=== PATIENT | female | born 1980 | race African-American/Black ===

== ENCOUNTER 2019-07-21 08:57 | Emergency (ER) | payer SELFPAY ==
--- NOTE | 2019-07-21 09:22 | ER ---
Nurse's Notes [facility] Name: Shadi Shannon Age: 39 yrs Sex: Female : 1980 Arrival Date: 07/21/2019 Time: 09:00 Bed 19 Private MD: Diagnosis: Dental caries;Dental caries, unspecified;Dental root caries Presentation: 07/20 09:11 Chief complaint: Patient states: RIGHT LOWER TOOTH PAIN SINCE Y/D AM. Coronavirus bp screen: Patient denies fever greater than 100.4F, cough, shortness of breath, or difficulty breathing. Ebola Screen: No symptoms or risks identified at this time. Initial Sepsis Screen: Does the patient meet any 2 criteria? No. Patient's initial sepsis screen is negative. Does the patient have a suspected source of infection? No. Patient's initial sepsis screen is negative. Risk Assessment: Do you want to hurt yourself or someone else? Patient reports no desire to harm self or others. 09:11 Method Of Arrival: Ambulatory bp 09:11 Acuity: AUDELIA 5 bp 09:13 Onset of symptoms was July 20, 2019 at 07:00. bp Triage Assessment: 09:11 General: Appears in no apparent distress. comfortable, Behavior is calm, cooperative, bp appropriate for age. Pain: Complains of pain in mouth. EENT: Reports pain in right jaw. Neuro: No deficits noted. Cardiovascular: No deficits noted. Respiratory: No deficits noted. GI: No signs and/or symptoms were reported involving the gastrointestinal system. : No signs and/or symptoms were reported regarding the genitourinary system. Derm: No deficits noted. Musculoskeletal: No deficits noted. Historical: - Allergies: 09:09 No Known Allergies; hb - Home Meds: 09:09 None [Active]; hb - PMHx: 09:09 Anemia; hb - PSHx: 09:09 None; hb - Immunization history:: Adult Immunizations up to date. - Social history:: Smoking status: Patient denies any tobacco usage or history of. - Family history:: not pertinent. Screenin:08 Abuse screen: Denies threats or abuse. Denies injuries from another. Nutritional hb screening: No deficits noted. Tuberculosis screening: No symptoms or risk factors identified. Fall Risk None identified. Assessment: 09:12 General: SEE TRIAGE NOTE. bp Vital Signs: 09:11 BP 144 / 95; Pulse 80; Resp 16; Temp 97.2; Pulse Ox 100% ; Weight 65.77 kg; Height 5 bp ft. 6 in. (167.64 cm); 09:11 Body Mass Index 23.40 (65.77 kg, 167.64 cm) bp ED Course: 09:00 Patient arrived in ED. mr 09:05 Leland Peña MD is Attending Physician. esther 09:07 Arm band placed on. hb 09:08 Patient has correct armband on for positive identification. Bed in low position. Call hb light in reach. Side rails up X 1. 09:12 Triage completed. bp 09:20 Matthew Baldwin DDS is Referral Physician. esther 09:37 Zamzam Barnard, RN is Primary Nurse. hb 09:38 No provider procedures requiring assistance completed. Patient did not have IV access hb during this emergency room visit. Administered Medications: 03:33 Drug: Motrin 600 mg Route: PO; hb 09:38 Follow up: Response: Medication administered at discharge. hb 09:33 Drug: Augmentin 875 mg Route: PO; hb 09:37 Follow up: Response: No adverse reaction; Medication administered at discharge. hb Outcome: 09:21 Discharge ordered by . esther 09:38 Discharged to home ambulatory. hb 09:38 Condition: stable 09:38 Discharge instructions given to patient, Instructed on discharge instructions, follow up and referral plans. medication usage, Demonstrated understanding of instructions, follow-up care, medications, Prescriptions given X 3. 09:39 Patient left the ED. hb Signatures: Leland Peña MD MD cha Rivera, Mary mr Zamzam Barnard, RN RN Alphonso Omer, ALEXIS RN bp
--- NOTE | 2019-07-21 09:22 | EDPHYS ---
Physician Documentation [facility] Name: Shadi Shannon Age: 39 yrs Sex: Female : 1980 Arrival Date: 07/21/2019 Time: 09:00 Bed 19 Private MD: PEDRO Physician Leland Peña HPI: 07/20 09:17 This 39 yrs old Black Female presents to ER via Ambulatory with complaints of Toothache.esther 09:17 The patient presents with broken tooth/teeth, pain. The problem is located in the right [facility] buccal mucosa. Onset: The symptoms/episode began/occurred 2 day(s) ago. Duration: The symptoms are continuous, and are steadily getting worse. Modifying factors: The symptoms are alleviated by nothing, the symptoms are aggravated by chewing. Associated signs and symptoms: The patient has no apparent associated signs or symptoms. Severity of symptoms: At their worst the symptoms were mild, moderate, in the emergency department the symptoms are unchanged. The patient has not experienced similar symptoms in the past. Historical: - Allergies: 09:09 No Known Allergies; hb - Home Meds: 09: None [Active]; hb - PMHx: 09:09 Anemia; hb - PSHx: 09:09 None; hb - Immunization history:: Adult Immunizations up to date. - Social history:: Smoking status: Patient denies any tobacco usage or history of. - Family history:: not pertinent. ROS: 09:17 Constitutional: Negative for fever, chills, and weight loss, Eyes: Negative for injury, esther pain, redness, and discharge, Neck: Negative for injury, pain, and swelling, Cardiovascular: Negative for chest pain, palpitations, and edema, Respiratory: Negative for shortness of breath, cough, wheezing, and pleuritic chest pain, Abdomen/GI: Negative for abdominal pain, nausea, vomiting, diarrhea, and constipation, Back: Negative for injury and pain, : Negative for injury, bleeding, discharge, and swelling, MS/Extremity: Negative for injury and deformity, Skin: Negative for injury, rash, and discoloration, Neuro: Negative for headache, weakness, numbness, tingling, and seizure, Psych: Negative for depression, anxiety, suicide ideation, homicidal ideation, and hallucinations, Allergy/Immunology: Negative for hives, rash, and allergies, Endocrine: Negative for neck swelling, polydipsia, polyuria, polyphagia, and marked weight changes, Hematologic/Lymphatic: Negative for swollen nodes, abnormal bleeding, and unusual bruising. 09:17 ENT: Positive for dental pain, Gum pain Exam: 09:17 Constitutional: This is a well developed, well nourished patient who is awake, alert, esther and in no acute distress. Head/Face: Normocephalic, atraumatic. Eyes: Pupils equal round and reactive to light, extra-ocular motions intact. Lids and lashes normal. Conjunctiva and sclera are non-icteric and not injected. Cornea within normal limits. Periorbital areas with no swelling, redness, or edema. Neck: Trachea midline, no thyromegaly or masses palpated, and no cervical lymphadenopathy. Supple, full range of motion without nuchal rigidity, or vertebral point tenderness. No Meningismus. Chest/axilla: Normal chest wall appearance and motion. Nontender with no deformity. No lesions are appreciated. Cardiovascular: Regular rate and rhythm with a normal S1 and S2. No gallops, murmurs, or rubs. Normal PMI, no JVD. No pulse deficits. Respiratory: Lungs have equal breath sounds bilaterally, clear to auscultation and percussion. No rales, rhonchi or wheezes noted. No increased work of breathing, no retractions or nasal flaring. Abdomen/GI: Soft, non-tender, with normal bowel sounds. No distension or tympany. No guarding or rebound. No evidence of tenderness throughout. Back: No spinal tenderness. No costovertebral tenderness. Full range of motion. Female : Normal external genitalia. Skin: Warm, dry with normal turgor. Normal color with no rashes, no lesions, and no evidence of cellulitis. MS/ Extremity: Pulses equal, no cyanosis. Neurovascular intact. Full, normal range of motion. Neuro: Awake and alert, GCS 15, oriented to person, place, time, and situation. Cranial nerves II-XII grossly intact. Motor strength 5/5 in all extremities. Sensory grossly intact. Cerebellar exam normal. Normal gait. Psych: Awake, alert, with orientation to person, place and time. Behavior, mood, and affect are within normal limits. 09:17 ENT: Mouth: Oral mucosa: moist, Gums: reddened, Tongue: is normal, abscess, is not appreciated, drooling, is not appreciated, Posterior pharynx: no acute changes, Airway: normal, no evidence of obstruction, Tonsils: are normal in appearance, Uvula: normal, midline, non-edematous, no erythema, swelling, is not appreciated, erythema, is not appreciated, exudate, is not appreciated, peritonsillar mass, is not appreciated, pooling of secretions, is not appreciated. Vital Signs: 09:11 BP 144 / 95; Pulse 80; Resp 16; Temp 97.2; Pulse Ox 100% ; Weight 65.77 kg; Height 5 bp ft. 6 in. (167.64 cm); 09:11 Body Mass Index 23.40 (65.77 kg, 167.64 cm) bp MDM: 09:11 Patient medically screened. [facility] 09:20 Data reviewed: vital signs, nurses notes. [facility] Administered Medications: 03:33 Drug: Motrin 600 mg Route: PO; 09:38 Follow up: Response: Medication administered at discharge. 09:33 Drug: Augmentin 875 mg Route: PO; 09:37 Follow up: Response: No adverse reaction; Medication administered at discharge. Disposition: 07/21/19 09:21 Discharged to Home. Impression: Dental caries, Dental caries, unspecified, Dental root caries. - Condition is Stable. - Discharge Instructions: Dental Caries, Adult, Dental Pain, Dental Pain, [id number], Dental Caries, [id number]. - Prescriptions for Amoxicillin 500 mg Oral Capsule - take 1 capsule by ORAL route every 8 hours for 10 days; 30 tablet. Tylenol- Codeine #3 300-30 mg Oral Tablet - take 2 tablets by ORAL route every 6 hours As needed; 26 tablet. Ibuprofen 600 mg Oral Tablet - take 1 tablet by ORAL route every 8 hours As needed take with food; 21 tablet. - Medication Reconciliation Form, Thank You Letter, Antibiotic Education, Prescription Opioid Use form. - Follow up: Private Physician; When: 2 - 3 days; Reason: Recheck today's complaints, Continuance of care, Re-evaluation by your physician. Follow up: Matthew Baldwin DDS; When: 2 - 3 days; Reason: Recheck today's complaints, Re-evaluation by your physician. - Problem is new. - Symptoms have improved. Signatures: Leland Peña MD MD cha Baxter, Heather, RN RN hb Corrections: (The following items were deleted from the chart) 09:39 09:21 07/21/2019 09:21 Discharged to Home. Impression: Dental caries; Dental caries, hb unspecified; Dental root caries. Condition is Stable. Forms are Medication Reconciliation Form, Thank You Letter, Antibiotic Education, Prescription Opioid Use. Follow up: Private Physician; When: 2 - 3 days; Reason: Recheck today's complaints, Continuance of care, Re-evaluation by your physician. Follow up: Matthew Baldwin; When: 2 - 3 days; Reason: Recheck today's complaints, Re-evaluation by your physician. Problem is new. Symptoms have improved. esther
[2019-07-21] MEDS ORDERED: IBUPROFEN 200 MG TAB PO ONE (09:35)
[2019-07-21] MEDS ORDERED: AMOX/K CLAV 875 MG TAB ONE (09:35)
[2019-07-21 09:46] VITALS: BP 144/95; TEMP 97.2; O2SAT 100
== END 2019-07-21 09:39 | disposition home or self-care (01) ==
LOC: ER 08:57
DX: K02.7 Dental root caries (principal)
CPT/HCPCS: 99283